=== PATIENT | male | born 1960 | race Caucasian/White ===

== ENCOUNTER → 2017-05-15 10:33 | Outpatient (CLI) | payer OTHER, MEDICARE, SELFPAY ==
--- NOTE | 2017-05-15 10:53 | XR_ITS ---
EXAM: XR lumbar spine min 4V HISTORY: ITS.REASON: MEGHANN LOW BACK PAIN ORDERING PHYSICIAN: Rin Merino PATIENT AGE: 56 years COMPARISON: None FINDINGS: Normal alignment. No fracture or dislocation. No lytic or blastic change. The disc spaces are well-preserved. Small intra-articular osteophyte are present at L3, L4, and L5. There is incidental vascular calcification noted of the aorta. The SI joints have an unremarkable appearance. IMPRESSION: Mild lumbar spondylosis, no acute finding
== END ==
PROVIDERS: PCP Family Medicine; Visit Provider Nurse Practitioner Family
DX: M54.5 Low back pain (principal)
CPT/HCPCS: 72110

== ENCOUNTER → 2017-07-10 09:32 | Outpatient (CLI) | payer OTHER, MEDICARE, SELFPAY ==
[2017-07-10 10:11] LABS: Albumin Level 3.2 gm/dL (3.4-5.0); Anion Gap 9.3 mEq/L (5-15); Blood Urea Nitrogen 39 mg/dL (7-18); Calcium 9.1 mg/dL (8.5-10.1); Carbon Dioxide 30 mmol/L (21.0-32.0); Chloride 105 mmol/L (98-107); Estimated Glomerular Filt Rate 45 ml/min (>60); GFR (African American) 55 ML/MIN (>60); Glucose 217 mg/dL (74-106); Phosphorous 4.3 mg/dL (2.4-4.9); Potassium 4.3 mmoL/L (3.5-5.1); Sodium 140 mmol/L (136-145); Uric Acid 8.8 mg/dL (2.6-7.2)
[2017-07-12 09:30] LABS: Parathyroid Hormone Intact 33 pg/mL (15-65)
== END ==
PROVIDERS: Visit Provider Internal Medicine
DX: N18.9 Chronic kidney disease, unspecified (principal)
CPT/HCPCS: 36415; 80069; 83970; 84550

== ENCOUNTER → 2017-09-18 10:00 | Outpatient (CLI) | payer OTHER, MEDICARE, SELFPAY ==
[2017-09-18 11:01] LABS: Anion Gap 15.8 mEq/L (5-15); Blood Urea Nitrogen 31 mg/dL (7-18); Carbon Dioxide 25 mmol/L (21.0-32.0); Chloride 105 mmol/L (98-107); Creatinine,Serum 2.01 mg/dL (0.70-1.30); Estimated Glomerular Filt Rate 35 ml/min (>60); GFR (African American) 42 ML/MIN (>60); Glucose 158 mg/dL (74-106); Sodium 139 mmol/L (136-145)
[2017-09-18 11:04] LABS: Potassium 6.8 mmoL/L (3.5-5.1)
--- NOTE | 2017-09-18 12:08 | XR_ITS ---
XR foot LT min 3V HISTORY: Pain and swelling, laceration ITS.REASON: LACERATION OF LESSER TOE OF LEFT FOOT,CELLULITIS ORDERING PHYSICIAN: Bo Pat MD PATIENT AGE: 57 years COMPARISON: None FINDINGS: No fracture or dislocation. No lytic or blastic change. There is normal mineralization.. The joint spaces are well-preserved. No significant degenerative/arthritic changes. No erosive changes evident. No radio opaque foreign body or soft tissue gas IMPRESSION: Negative, no acute finding
== END ==
PROVIDERS: PCP Family Medicine; Visit Provider Internal Medicine
DX: I25.10 Atherosclerotic heart disease of native coronary artery without angina pectoris (principal); I73.9 Peripheral vascular disease, unspecified; I10 Essential (primary) hypertension; E78.5 Hyperlipidemia, unspecified; S91.115D Laceration without foreign body of left lesser toe(s) without damage to nail, subsequent encounter; L03.818 Cellulitis of other sites
CPT/HCPCS: 36415; 73630; 80048

== ENCOUNTER → 2017-09-19 14:57 | Outpatient (CLI) | payer OTHER, MEDICARE, SELFPAY ==
[2017-09-19 18:04] LABS: Anion Gap 12.8 mEq/L (5-15); Blood Urea Nitrogen 35 mg/dL (7-18); Carbon Dioxide 27 mmol/L (21.0-32.0); Chloride 107 mmol/L (98-107); Estimated Glomerular Filt Rate 35 ml/min (>60); GFR (African American) 42 ML/MIN (>60); Glucose 216 mg/dL (74-106); Potassium 5.8 mmoL/L (3.5-5.1); Sodium 141 mmol/L (136-145)
== END ==
PROVIDERS: Visit Provider Internal Medicine
DX: I25.10 Atherosclerotic heart disease of native coronary artery without angina pectoris (principal)
CPT/HCPCS: 36415; 80048

== ENCOUNTER → 2017-09-25 11:11 | Outpatient (CLI) | payer OTHER, MEDICARE, SELFPAY ==
[2017-09-25 12:22] LABS: Anion Gap 13.7 mEq/L (5-15); Blood Urea Nitrogen 27 mg/dL (7-18); Calcium 9.6 mg/dL (8.5-10.1); Carbon Dioxide 26 mmol/L (21.0-32.0); Chloride 106 mmol/L (98-107); Creatinine,Serum 1.37 mg/dL (0.70-1.30); Estimated Glomerular Filt Rate 54 ml/min (>60); GFR (African American) 65 ML/MIN (>60); Glucose 243 mg/dL (74-106); Potassium 4.7 mmoL/L (3.5-5.1); Sodium 141 mmol/L (136-145)
== END ==
PROVIDERS: Physician Assistant; Visit Provider Internal Medicine
DX: I25.10 Atherosclerotic heart disease of native coronary artery without angina pectoris (principal); I11.9 Hypertensive heart disease without heart failure; E78.5 Hyperlipidemia, unspecified; E11.9 Type 2 diabetes mellitus without complications; Z95.5 Presence of coronary angioplasty implant and graft
CPT/HCPCS: 36415; 80048

== ENCOUNTER → 2017-11-08 09:56 | Outpatient (CLI) | payer OTHER, MEDICARE, SELFPAY ==
[2017-11-08 10:18] LABS: Anion Gap 8.6 mEq/L (5-15); Blood Urea Nitrogen 29 mg/dL (7-18); Calcium 9.2 mg/dL (8.5-10.1); Carbon Dioxide 30 mmol/L (21.0-32.0); Chloride 107 mmol/L (98-107); Creatinine,Serum 1.67 mg/dL (0.70-1.30); Estimated Glomerular Filt Rate 43 ml/min (>60); GFR (African American) 52 ML/MIN (>60); Glucose 245 mg/dL (74-106); Potassium 4.6 mmoL/L (3.5-5.1); Sodium 141 mmol/L (136-145)
== END ==
PROVIDERS: Visit Provider Physician Assistant
DX: I25.10 Atherosclerotic heart disease of native coronary artery without angina pectoris (principal); Z95.5 Presence of coronary angioplasty implant and graft; I10 Essential (primary) hypertension; I11.9 Hypertensive heart disease without heart failure; E10.9 Type 1 diabetes mellitus without complications; E78.2 Mixed hyperlipidemia
CPT/HCPCS: 36415; 80048

== ENCOUNTER → 2017-11-14 10:27 | Outpatient (CLI) | payer OTHER, MEDICARE, SELFPAY ==
[2017-11-14 11:35] LABS: Anion Gap 14.9 mEq/L (5-15); Blood Urea Nitrogen 55 mg/dL (7-18); Calcium 9.8 mg/dL (8.5-10.1); Carbon Dioxide 27 mmol/L (21.0-32.0); Chloride 105 mmol/L (98-107); Creatinine,Serum 2.39 mg/dL (0.70-1.30); Estimated Glomerular Filt Rate 28 ml/min (>60); GFR (African American) 34 ML/MIN (>60); Glucose 157 mg/dL (74-106); Potassium 4.9 mmoL/L (3.5-5.1); Sodium 142 mmol/L (136-145)
== END ==
PROVIDERS: PCP Family Medicine; Visit Provider Internal Medicine Cardiovascular Disease
DX: I25.10 Atherosclerotic heart disease of native coronary artery without angina pectoris (principal); R06.09 Other forms of dyspnea; N18.2 Chronic kidney disease, stage 2 (mild)
CPT/HCPCS: 36415; 80048

== ENCOUNTER → 2017-12-03 10:57 | Outpatient (CLI) | payer OTHER, MEDICARE, SELFPAY ==
[2017-12-03 12:44] LABS: Anion Gap 13.9 mEq/L (5-15); Blood Urea Nitrogen 47 mg/dL (7-18); Calcium 9.2 mg/dL (8.5-10.1); Carbon Dioxide 26 mmol/L (21.0-32.0); Chloride 106 mmol/L (98-107); Creatinine,Serum 2.15 mg/dL (0.70-1.30); Estimated Glomerular Filt Rate 32 ml/min (>60); GFR (African American) 39 ML/MIN (>60); Glucose 133 mg/dL (74-106); Potassium 4.9 mmoL/L (3.5-5.1); Sodium 141 mmol/L (136-145)
== END ==
PROVIDERS: PCP Family Medicine; Visit Provider Internal Medicine Cardiovascular Disease
DX: I25.10 Atherosclerotic heart disease of native coronary artery without angina pectoris (principal); I11.9 Hypertensive heart disease without heart failure; E10.9 Type 1 diabetes mellitus without complications; N18.2 Chronic kidney disease, stage 2 (mild)
CPT/HCPCS: 36415; 80048

== ENCOUNTER → 2017-12-19 13:04 | Outpatient (CLI) | payer OTHER, MEDICARE, SELFPAY | PROVIDERS: PCP Family Medicine; Visit Provider Internal Medicine Cardiovascular Disease | DX: G47.33 Obstructive sleep apnea (adult) (pediatric) (principal); I10 Essential (primary) hypertension | CPT/HCPCS: G0399 ==

== ENCOUNTER → 2018-04-01 20:02 | Outpatient (CLI) | payer OTHER, MEDICARE, SELFPAY | PROVIDERS: PCP Family Medicine; Visit Provider Nurse Practitioner Family | DX: G47.33 Obstructive sleep apnea (adult) (pediatric) (principal) | CPT/HCPCS: 95811 ==

== ENCOUNTER 2018-06-11 15:03 | Observation (INO) ==
--- NOTE | 2018-06-11 15:08 | Emergency Department Note ---
ED Disposition Clinical Impression: Chest pain, precordial Disposition: Admitted as Observation Condition on Discharge: Good Referrals: Virgil Arzola MD [Primary Care Provider] - - Critical Care Critical Care Time: No Attestation: On , the high probability of a clinically significant, sudden or life threatening deterioration of the following system(s) required my full and direct attention, intervention and personal management. The time I documented below is in addition to time spent performing reported procedures but includes the following listed in this critical care notation. Medical Decision Making - Yury Inquiry Pt receiving controlled substance: No Vital Signs: 06/11/18 15:03 Temperature 97.9 F Temperature Source Oral Pulse Rate [Left Radial] 71 Respiratory Rate 18 Blood Pressure [Right Arm] 132/73 Blood Pressure Mean [Right Arm] 92 Blood Pressure Source [Right Arm] Automatic Cuff Blood Pressure Position [Right Arm] Sitting 02 Sat by Pulse Oximetry 96 Oxygen Delivery Method Room Air - Lab Data Lab Results 06/11/18 15:18: WBC 11.2 H, RBC 5.73, Hgb 15.4, Hct 48.6, MCV 84.9, MCH 26.9 L, MCHC 31.7 L, RDW 14.3, Plt Count 249, MPV 9.3, Neut % (Auto) 77.9, Lymph % (Au to) 14.8, [place] % (Auto) 6.3, Eos % (Auto) 0.8, Baso % (Auto) 0.2, Neut # (Auto) 8.7 H, Lymph # (Auto) 1.7, [place] # (Auto) 0.7, Eos # (Auto) 0.1, Baso # (Auto) 0.0 06/11/18 15:18: Sodium 140, Potassium 4.1, Chloride 104, Carbon Dioxide 26, Anion Gap 14.1, BUN 30 H, Creatinine 1.92 H, Estimated Creat Clear 71, Estimated GFR 37 L, Est GFR ( Amer) 44 L, Glucose 353 H, Calcium 8.2 L, Troponin I < 0.02 Result diagrams: 06/11/18 15:18 06/11/18 15:18 Orders (Tests/Meds): ED MEDICATIONS Discontinued Medications Generic Name Dose Route Start Last Admin Trade Name Freq PRN Reason Stop Dose Admin Aspirin 243 mg 06/11/18 15:15 06/11/18 15:20 Aspirin 81mg Chewable Tablet PO 02/19/19 15:16 243 mg ONCE ONE Administration Diphenhydramine HCl 25 mg 06/11/18 16:14 Benadryl 50mg/1ml Vial IV 06/11/18 16:15 ONCE ONE ORDERS Category Date Time Status Troponin I Stat Lab 06/11/18 15:18 Ordered ECG Request by /Terri Stat Y 06/11/18 15:15 Stop Req - Radiology Data #1 Image(s): Chest Image Reviewed: Yes I have reviewed radiologist's interpretation mild cardiomegaly - ECG Data Tracing #1 EKG interpreted by Alexis Che MD: Rhythm: sinus Rate: 70 [place]: normal Ectopy: none Conduction: normal ST Segment Changes: none T Wave Changes: none Q Waves: Lead III only No evidence of acute ischemia or injury - Physician Consults Physician Consulted: MING Soria for Dr. Pat Time: 15:37 Reason -: Cardiology Eval/Care Comment/Response: She will see patient in the emergency department Additional Consult: Dariusz Time: 16:29 Reason -: Admission Comment/Response: Agrees to admit the patient to the hospital. We discussed the patient's clinical information, including history, exam, laboratory and radiology results and ED course. Per hospital procedure, I will write temporary bridge inpatient orders on the patient. Specific orders requested by the admitting physician: Serial cardiac enzymes, regular medications, Benadryl every 6 hours as needed Medical Decision Narrative: Seen by Estella. Recommends admission, serial enzymes, stress test tomorrow. General Adult HPI - General Stated complaint: Chest pain Time Seen by Provider: 06/11/18 15:15 - History of Present Illness HPI narrative: Chief complaint of chest pain. Patient states that he was cleaning his left leg with Hibiclens because he has diabetic blisters, he developed itching of his hands and feet and then his whole body, then developed chest pain across his anterior chest going up into his left superior anterior shoulder with shortness of breath. States that he still has a very slight sense of pressure in his chest, but the more severe symptoms are gone. No diaphoresis or nausea. He does have coronary artery disease and has had [address] Pat, but has never had chest pain. No swelling of the lips or tongue. No hives or rash. Itching is gone. - Related Data Home Medications Medication Instructions Recorded Confirmed aspirin 81 mg tablet,delayed 81 mg PO QDAY 05/03/17 06/11/18 release atorvastatin 80 mg tablet 80 mg PO QDAY 05/03/17 06/11/18 eszopiclone 2 mg tablet 2 mg PO QHS 05/03/17 06/11/18 pregabalin 200 mg capsule 200 mg PO TID 05/03/17 06/11/18 insulin lispro (U- 100) 100 1 unit SQ DAILY 30 Days #30 ml 02/05/18 06/11/18 unit/mL subcutaneous solution Amlodipine Besylate 5 mg PO DAILY 06/11/18 06/11/18 Bisoprolol Fumarate [Bisoprolol 10 mg PO DAILY 06/11/18 06/11/18 10mg Tablet] Furosemide [Furosemide 20mg Tab] 20 mg PO QPM 06/11/18 06/11/18 Losartan Potassium 100 mg PO DAILY 06/11/18 06/11/18 Previous Rx's Medication Instructions Recorded ticagrelor 60 mg tablet 60 mg PO BID #180 tab 10/10/17 Allergies Allergy/AdvReac Type Severity Reaction Status Date / Time lisinopril AdvReac Mild cough Verified 06/06/18 09:54 [facility] History - Hepatitis A Screen Attestation statement:: This patient has been screened for Hepatitis A risk factors. I have reviewed the patient's past medical history: Yes Medical History: Reports:: Coronary Artery Disease, Diabetes Mellitus Type 2, Hyperlipidemia, Hypertension Comment: NELSON Laterality Cases: Left: Carpal Tunnel Release Other Surgeries: Yes: Cardiac Catheterization, Coronary Stent, Other Amputation: Yes ([place] finger on L hand, 2 outside toes on R foot, LHC-2 stents) - Social History Smoking Status: Former smoker Alcohol Intake: current Alcohol Intake Frequency:: holidays/special occasions only Substance Use Type: denies use Occupational Status: disabled Housing: house Household Members: spouse Family Hx:: Coronary Artery Disease ROS Obtained: Yes All systems reviewed & no additional complaints - Constitutional Constitutional: Denies fever(s) - Cardiovascular Cardiovascular: Reports chest pain, Denies diaphoresis - Respiratory Respiratory: Yes dyspnea - Gastrointestinal Gastrointestingal: Denies: abdominal pain, nausea, vomiting - Integumentary/Breasts Skin/Breast: Reports itching, Denies rash Physical Exam - General General appearance: alert, in no apparent distress - Head Head exam: atraumatic, normocephalic - Eye Eye exam: Present: normal appearance, PERRL, EOMI - ENT ENT exam: Present: mucous membranes moist - Neck Neck exam: Present: normal inspection, trachea midline - Chest Chest inspection: Present: normal inspection, symmetric chest wall rise - Respiratory Respiratory exam: Present: normal lung sounds bilaterally. Absent: respiratory distress - Cardiovascular Cardiovascular exam: Present: regular rate, normal rhythm, normal heart sounds - Abdominal Exam Abdominal exam: Present: soft. Absent: distention, tenderness - Extremities Exam Extremities exam: Present: full ROM, other (Amputation of left small finger). Absent: tenderness - Neurological Exam Neurological exam: Present: alert, oriented X3 - Psychiatric Psychiatric exam: Present: normal affect, normal mood - Skin Skin exam: Present: warm, dry. Absent: rash
[2018-06-11 15:24] LABS: Basophils % 0.2 % (0.1-2.0); Eosinophils # 0.1 K/mm3 (0.0-0.4); Eosinophils % 0.8 % (0.1-12.0); Hematocrit 48.6 % (42.0-52.0); Hemoglobin 15.4 g/dL (14.1-18.0); Lymphocytes # 1.7 K/mm3 (0.7-4.5); Lymphocytes % 14.8 % (10-50); Mean Corpuscular HGB Conc 31.7 g/dL (31.8-35.4); Mean Corpuscular Hemoglobin 26.9 pg (27.0-31.2); Mean Corpuscular Volume 84.9 fl (80-94); Mean Platelet Volume 9.3 fl (7.4-10.4); Monocytes # 0.7 K/mm3 (0.1-1.0); Monocytes % 6.3 % (1.7-9.3); Neutrophils # 8.7 K/mm3 (1.8-7.8); Neutrophils % 77.9 % (37.0-80.0); Platelet Count 249 K/mm3 (142-424); Red Blood Count 5.73 M/mm3 (4.60-6.20); Red Cell Distribution Width 14.3 % (11.5-17.5); White Blood Count 11.2 K/mm3 (4.8-10.8)
[2018-06-11 15:43] LABS: Anion Gap 14.1 mEq/L (5-15); Blood Urea Nitrogen 30 mg/dL (7-18); Calcium 8.2 mg/dL (8.5-10.1); Carbon Dioxide 26 mmol/L (21.0-32.0); Chloride 104 mmol/L (98-107); Glucose 353 mg/dL (74-106); Potassium 4.1 mmoL/L (3.5-5.1); Sodium 140 mmol/L (136-145)
--- NOTE | 2018-06-11 16:25 | Consult Report ---
History of Present Illness Consult date: 06/11/18 ([id number]) Requesting physician: Alexis Che Consult reason: chest pain Chief complaint: Chest pain History of present illness: This is a 57-year-old gentleman who presented to the emergency department with complaints of chest pain. He states that he was in the tub cleaning his diabetic ulcers to his left leg with Hibiclens when he had sudden onset of itching over his entire body. The patient states that he has been using Hibiclens for quite some time for his diabetic ulcers and has never had an itching episode like that. He states following the itching episode he then had sudden onset of sharp, pressure pain in the center of his chest he states that this radiated across his entire anterior aspect of his chest and radiated up into his left shoulder. It was associated with shortness of breath. He denied any nausea, vomiting or diaphoresis. The patient states that he is still having chest pressure while I am talking to him. He said it is milder now but still present. Earlier today the pain was more severe when it initially first started. He states that he has never had symptoms like this before. The patient has a history of coronary disease with multiple stents placed to his heart and his legs. He states in the past he has never had testing when he required stenting. This chest pain is something new for him. The patient denies any fever, chills, nausea PND or orthopnea. He states that it has resolved but his hands are now red which is very unusual for him. He is concerned that he is having an allergic reaction to something. [facility] History I have reviewed the patient's past medical history: Yes Medical History: Reports:: Coronary Artery Disease, Diabetes Mellitus Type 2, Hyperlipidemia, Hypertension Denies:: Diabetes Mellitus Type 1 *Have you received a flu vaccine this season?: No Laterality Cases: Left: Carpal Tunnel Release Other Surgeries: Yes: Cardiac Catheterization, Coronary Stent, Other Amputation: Yes (Pinkie finger on L hand, 2 outside toes on R foot, LHC-2 stents) - *Social History Smoking Status: Former smoker Alcohol Intake: current Alcohol Intake Frequency:: holidays/special occasions only Substance Use Type: denies use *Occupational Status:: disabled Housing: house Household Members: spouse *Travel in the last 8 weeks: None - Psychiatric History Expresses thoughts of harming self/others: None Suicide Plan Description: No Plan Family Hx:: Coronary Artery Disease Meds Home Medications Medication Instructions Recorded Confirmed Type aspirin 81 mg tablet,delayed 81 mg PO QDAY 05/03/17 06/11/18 History release atorvastatin 80 mg tablet 80 mg PO QDAY 05/03/17 06/11/18 History eszopiclone 2 mg tablet 2 mg PO QHS 05/03/17 06/11/18 History pregabalin 200 mg capsule 200 mg PO TID 05/03/17 06/11/18 History ticagrelor 60 mg tablet 60 mg PO BID #180 tab 10/10/17 06/11/18 Rx insulin lispro (U- 100) 100 1 unit SQ DAILY 30 Days #30 ml 02/05/18 06/11/18 History unit/mL subcutaneous solution Amlodipine Besylate 5 mg PO DAILY 06/11/18 06/11/18 History Bisoprolol Fumarate [Bisoprolol 10 mg PO DAILY 06/11/18 06/11/18 History 10mg Tablet] Furosemide [Furosemide 20mg Tab] 20 mg PO QPM 06/11/18 06/11/18 History Losartan Potassium 100 mg PO DAILY 06/11/18 06/11/18 History Allergies Allergy/AdvReac Type Severity Reaction Status Date / Time lisinopril AdvReac Mild cough Verified 06/06/18 09:54 Review of Systems - Review of Systems Review of systems:: pertinent systems reviewed and negative unless documented below - Constitutional Reports fatigue - *Cardiovascular Reports chest pain, Reports chest pain at rest, Reports chest pain with activity, Reports shortness of breath, Reports shortness of breath with activity - *Respiratory Reports shortness of breath, Reports shortness of breath with activity - Integumentary/Breasts Reports lesions (Diabetic ulcers), Reports itching, Reports rash (Bilateral hands) Exam Vital signs and Labs for Last 24 Hours: Temp Pulse Resp BP Pulse Ox 97.9 F 71 18 132/73 96 06/11/18 15:03 06/11/18 15:03 06/11/18 15:03 06/11/18 15:03 06/11/18 15:03 Laboratory Results - last 24 hr 06/11/18 15:18: WBC 11.2 H, RBC 5.73, Hgb 15.4, Hct 48.6, MCV 84.9, MCH 26.9 L, MCHC 31.7 L, RDW 14.3, Plt Count 249, MPV 9.3, Neut % (Auto) 77.9, Lymph % (Auto) 14.8, [place] % (Auto) 6.3, Eos % (Auto) 0.8, Baso % (Auto) 0.2, Neut # (Auto) 8.7 H, Lymph # (Auto) 1.7, [place] # (Auto) 0.7, Eos # (Auto) 0.1, Baso # (Auto) 0.0 06/11/18 15:18: Sodium 140, Potassium 4.1, Chloride 104, Carbon Dioxide 26, Anion Gap 14.1, BUN 30 H, Creatinine 1.92 H, Estimated Creat Clear 71, Estimated GFR 37 L, Est GFR ( Amer) 44 L, Glucose 353 H, Calcium 8.2 L, Troponin I < 0.02 I & O for Last 24 hours: Intake & Output 06/08/18 06/09/18 06/10/18 06/11/18 23:59 23:59 23:59 23:59 Weight 254 lb Narrative: EKG is sinus rhythm with a rate of 70. - Constitutional no acute distress, obese - *Routine HEENT Exam Head: Present: normocephalic, atraumatic Eye: Present: EOMI, PERRL ENT: Present: mucous membranes moist - *Routine Neck Exam Present: supple, full ROM. Absent: JVD, carotid bruit, lymphadenopathy - *Routine Respiratory Exam Present: CTA bilaterally - *Routine Cardiovascular Exam Present: RRR, Normal S1, Normal S2. Absent: murmur, gallop - *Routine Abdominal Exam Present: soft, normoactive bowel sounds. Absent: tenderness, distended - *Routine Extremities Exam Present: full ROM, pulses intact (Diminished), normal capillary refill. Absent: cyanosis, clubbing, edema - *Routine Skin Exam Present: erythema (The bilateral hands), warm, lesions (Diabetic ulcers to the left leg). Absent: rash - *Routine Neurological Exam Present: alert, oriented X3, CN II-XII intact. Absent: sensory deficit, motor deficit - Detailed Eye Exam Eyelids: Left normal inspection Assessment and Plan (1) Angina pectoris Current visit: Yes Status: Acute Category: Medical Code(s): I20.9 - Angina pectoris, unspecified (2) Itching Current visit: Yes Status: Acute Category: Medical Code(s): L29.9 - Pruritus, unspecified (3) Stented coronary artery Current visit: No Status: Chronic Category: Surgical Code(s): Z95.5 - Presence of coronary angioplasty implant and graft (4) Coronary arteriosclerosis Current visit: No Status: Chronic Category: Medical Code(s): I25.10 - Atherosclerotic heart disease of [place] coronary artery without angina pectoris (5) Diabetes mellitus Current visit: No Status: Chronic Qualifiers: Diabetes mellitus type: type 1 Diabetes mellitus complication status: without complication Qualified Code(s): E10.9 - Type 1 diabetes mellitus without complications Category: Medical Code(s): E11.9 - Type 2 diabetes mellitus without complications (6) Hyperlipidemia Current visit: No Status: Chronic Qualifiers: Hyperlipidemia type: mixed hyperlipidemia Qualified Code(s): E78.2 - Mixed hyperlipidemia Category: Medical Code(s): E78.5 - Hyperlipidemia, unspecified (7) Hypertensive disorder Current visit: No Status: Chronic Qualifiers: Hypertension type: essential hypertension Qualified Code(s): I10 - Essential (primary) hypertension Category: Medical Code(s): I10 - Essential (primary) hypertension (8) NELSON treated with BiPAP Current visit: No Status: Chronic Category: Medical Code(s): G47.33 - Obstructive sleep apnea (adult) (pediatric) (9) PAD (peripheral artery disease) Current visit: No Status: Chronic Category: Medical Code(s): I73.9 - Peripheral vascular disease, unspecified (10) Chronic kidney disease, stage 3 Current visit: Yes Status: Acute Category: Medical Code(s): N18.3 - Chronic kidney disease, stage 3 (moderate) (11) Diabetic ulcer of left lower leg Current visit: Yes Status: Acute Category: Medical Code(s): E11.622 - Type 2 diabetes mellitus with other skin ulcer; L97.929 - Non-pressure chronic ulcer of unspecified part of left lower leg with unspecified severity - Assessment and plan all Dx Assessment and Plan for all problems:: Plan: 1. The patient was admitted to the hospital following an episode of itching after using Hibiclens and then the patient had sudden onset of chest pain. The patient has known coronary artery disease with stenting to his LAD in 2017. The patient did have persistent disease to his right coronary artery and his circumflex artery. He would benefit from an ischemic evaluation given his new onset angina. 2. We will set the patient up for a Lexiscan Myoview stress test in the morning to rule out ischemia 3. We will set the patient up for an echocardiogram to evaluate his LV function. 4. Coronary artery disease is present. 5. His blood pressures well controlled. 6. His LDL goal is less than 55. We will get a liver and lipid panel in the morning. 7. The patient does have chronic kidney disease. His creatinine is 1.9. We want to avoid contrast if possible given his chronic kidney disease. 8. The patient did have some itching following using Hibiclens. He has used this multiple times in the past and never had any issues using the Hibiclens but he states that is the only thing that he did prior to the sudden onset of itching. He is complaining of his hands being reddened which is unusual for him. Will defer management of this to his family doctor. 9. The patient does have some diabetic ulcers to his left leg. He states that his leg is normally wrapped but did not have them to put a dressing on it due to his chest pain. This will also managed by his family doctor. 10. Further recommendations will be made pending the patient's response to treatment. Thank you for the opportunity to help participate in the care of this patient.
--- NOTE | 2018-06-11 16:49 | History & Physical Report ---
*Admission Date: 06/11/18 *Chief complaint: Chest pain *History of present illness: This is a 57-year-old gentleman who presented to the emergency department with complaints of chest pain. He states that he was in the tub cleaning his diabetic ulcers to his left leg with Hibiclens when he had sudden onset of itching over his entire body. The patient states that he has been using Hibiclens for quite some time for his diabetic ulcers and has never had an itching episode like that. He states following the itching episode he then had sudden onset of sharp, pressure pain in the center of his chest he states that this radiated across his entire anterior aspect of his chest and radiated up into his left shoulder. It was associated with shortness of breath. He denied any nausea, vomiting or diaphoresis. The patient states that he is still having chest pressure while I am talking to him. He said it is milder now but still present. Earlier today the pain was more severe when it initially first started. He states that he has never had symptoms like this before. The patient has a history of coronary disease with multiple stents placed to his heart and his legs. He states in the past he has never had testing when he required stenting. This chest pain is something new for him. The patient d enies any fever, chills, nausea PND or orthopnea. He states that it has resolved but his hands are now red which is very unusual for him. He is concerned that he is having an allergic reaction to something. 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, 2 outside toes on R foot, LHC-2 stents) - *Social History Smoking Status: Former smoker Alcohol Intake: current Alcohol Intake Frequency:: holidays/special occasions only Substance Use Type: denies use *Occupational Status:: disabled Housing: house Household Members: spouse *Travel in the last 8 weeks: None - Psychiatric History Expresses thoughts of harming self/others: None Suicide Plan Description: No Plan Family Hx:: Coronary Artery Disease Review of Systems - Review of Systems See [facility] Meds Home Medications Medication Instructions Recorded Confirmed Type aspirin 81 mg tablet,delayed 81 mg PO QDAY 05/03/17 06/11/18 History release atorvastatin 80 mg tablet 80 mg PO QDAY 05/03/17 06/11/18 History eszopiclone 2 mg tablet 2 mg PO QHS 05/03/17 06/11/18 History pregabalin 200 mg capsule 200 mg PO TID 05/03/17 06/11/18 History ticagrelor 60 mg tablet 60 mg PO BID #180 tab 10/10/17 06/11/18 Rx insulin lispro (U- 100) 100 1 unit SQ DAILY 30 Days #30 ml 02/05/18 06/11/18 History unit/mL subcutaneous solution Amlodipine Besylate 5 mg PO DAILY 06/11/18 06/11/18 History Bisoprolol Fumarate [Bisoprolol 10 mg PO DAILY 06/11/18 06/11/18 History 10mg Tablet] Furosemide [Furosemide 20mg Tab] 20 mg PO QPM 06/11/18 06/11/18 History Losartan Potassium 100 mg PO DAILY 06/11/18 06/11/18 History Allergies Allergy/AdvReac Type Severity Reaction Status Date / Time lisinopril AdvReac Mild cough Verified 06/06/18 09:54 Exam Vital signs and Labs for Last 24 Hours: Temp Pulse Resp BP Pulse Ox 97.9 F 69 20 123/73 97 06/11/18 15:03 06/11/18 16:03 06/11/18 16:03 06/11/18 16:03 06/11/18 16:03 Laboratory Results - last 24 hr 06/11/18 15:18: WBC 11.2 H, RBC 5.73, Hgb 15.4, Hct 48.6, MCV 84.9, MCH 26.9 L, MCHC 31.7 L, RDW 14.3, Plt Count 249, MPV 9.3, Neut % (Auto) 77.9, Lymph % (Auto) 14.8, [place] % (Auto) 6.3, Eos % (Auto) 0.8, Baso % (Auto) 0.2, Neut # (Auto) 8.7 H, Lymph # (Auto) 1.7, [place] # (Auto) 0.7, Eos # (Auto) 0.1, Baso # (Auto) 0.0 06/11/18 15:18: Sodium 140, Potassium 4.1, Chloride 104, Carbon Dioxide 26, Anion Gap 14.1, BUN 30 H, Creatinine 1.92 H, Estimated Creat Clear 71, Estimated GFR 37 L, Est GFR ( Amer) 44 L, Glucose 353 H, Calcium 8.2 L, Troponin I < 0.02 I & O for Last 24 hours: Intake & Output 06/09/18 06/10/18 06/11/18 06/12/18 11:59 11:59 11:59 11:59 Weight 254 lb Narrative: He appears comfortable. ENT exam is grossly normal. Neck is without lymphadenopathy or carotid bruits. Lungs are clear to auscultation. Heart has a regular rate and rhythm. Abdomen is soft and obese. Extremities have chronic erythema of the lower legs with dry flaky skin on the right leg. On the left lateral leg there is a large superficial wound that is draining some serosanguineous. Assessment and Plan (1) Angina pectoris Current visit: Yes Status: Acute Category: Medical Code(s): I20.9 - Angina pectoris, unspecified (2) Itching Current visit: Yes Status: Acute Category: Medical Code(s): L29.9 - Pruritus, unspecified (3) Stented coronary artery Current visit: No Status: Chronic Category: Surgical Code(s): Z95.5 - Presence of coronary angioplasty implant and graft (4) Coronary arteriosclerosis Current visit: No Status: Chronic Category: Medical Code(s): I25.10 - Atherosclerotic heart disease of [place] coronary artery without angina pectoris (5) Diabetes mellitus Current visit: No Status: Chronic Qualifiers: Diabetes mellitus type: type 1 Diabetes mellitus complication status: without complication Qualified Code(s): E10.9 - Type 1 diabetes mellitus without complications Category: Medical Code(s): E11.9 - Type 2 diabetes mellitus without complications (6) Hyperlipidemia Current visit: No Status: Chronic Qualifiers: Hyperlipidemia type: mixed hyperlipidemia Qualified Code(s): E78.2 - Mixed hyperlipidemia Category: Medical Code(s): E78.5 - Hyperlipidemia, unspecified (7) Hypertensive disorder Current visit: No Status: Chronic Qualifiers: Hypertension type: essential hypertension Qualified Code(s): I10 - Ess ential (primary) hypertension Category: Medical Code(s): I10 - Essential (primary) hypertension (8) NELSON treated with BiPAP Current visit: No Status: Chronic Category: Medical Code(s): G47.33 - Obstructive sleep apnea (adult) (pediatric) (9) PAD (peripheral artery disease) Current visit: No Status: Chronic Category: Medical Code(s): I73.9 - Peripheral vascular disease, unspecified (10) Chronic kidney disease, stage 3 Current visit: Yes Status: Acute Category: Medical Code(s): N18.3 - Chronic kidney disease, stage 3 (moderate) (11) Diabetic ulcer of left lower leg Current visit: Yes Status: Acute Category: Medical Code(s): E11.622 - Type 2 diabetes mellitus with other skin ulcer; L97.929 - Non-pressure chronic ulcer of unspecified part of left lower leg with unspecified severity - Assessment and plan all Dx Assessment and Plan for all problems:: Admit for rule out of MA. If patient rules out he will undergo stress testing in the morning
--- NOTE | 2018-06-12 07:19 | Progress Note ---
Internal Medicine - PN: Subj *Date: 06/12/18 *Time: 07:17 Interval history: Patient reports chest pain resolved around 8pm last night. His troponin barry minimally. HE feels well this a.m. Exam Vital signs and Labs for Last 24 Hours: Temp Pulse Resp BP Pulse Ox 98.5 F 66 18 97/49 L 95 06/12/18 04:00 06/12/18 04:00 06/12/18 04:00 06/12/18 04:00 06/12/18 04:00 Laboratory Results - last 24 hr 06/11/18 15:18: WBC 11.2 H, RBC 5.73, Hgb 15.4, Hct 48.6, MCV 84.9, MCH 26.9 L, MCHC 31.7 L, RDW 14.3, Plt Count 249, MPV 9.3, Neut % (Auto) 77.9, Lymph % (Aut o) 14.8, [place] % (Auto) 6.3, Eos % (Auto) 0.8, Baso % (Auto) 0.2, Neut # (Auto) 8.7 H, Lymph # (Auto) 1.7, [place] # (Auto) 0.7, Eos # (Auto) 0.1, Baso # (Auto) 0.0 06/11/18 15:18: Sodium 140, Potassium 4.1, Chloride 104, Carbon Dioxide 26, Anion Gap 14.1, BUN 30 H, Creatinine 1.92 H, Estimated Creat Clear 71, Estimated GFR 37 L, Est GFR ( Amer) 44 L, Glucose 353 H, Calcium 8.2 L, Troponin I < 0.02 06/11/18 17:35: Troponin I 0.07 H 06/11/18 20:17: Troponin I 0.10 H 06/11/18 20:50: POC Glucose 372 H* 06/11/18 22:51: Troponin I 0.09 H 06/12/18 06:36: POC Glucose 89 I & O for Last 24 hours: Intake & Output 06/09/18 06/10/18 06/11/18 06/12/18 11:59 11:59 11:59 11:59 Intake Total 610 / 610 Balance 610 / 610 Weight 254 lb 3 oz - Constitutional no acute distress - *Routine Respiratory Exam Present: CTA bilaterally - *Routine Cardiovascular Exam Present: RRR Assessment and Plan (1) Angina pectoris Current visit: Yes Status: Acute Category: Medical Code(s): I20.9 - Angina pectoris, unspecified (2) Itching Current visit: Yes Status: Acute Category: Medical Code(s): L29.9 - Pruritus, unspecified (3) Stented coronary artery Current visit: No Status: Chronic Category: Surgical Code(s): Z95.5 - Presence of coronary angioplasty implant and graft (4) Coronary arteriosclerosis Current visit: No Status: Chronic Category: Medical Code(s): I25.10 - Atherosclerotic heart disease of [place] coronary artery without angina pectoris (5) Diabetes mellitus Current visit: No Status: Chronic Qualifiers: Diabetes mellitus type: type 1 Diabetes mellitus complication status: without complication Qualified Code(s): E10.9 - Type 1 diabetes mellitus without complications Category: Medical Code(s): E11.9 - Type 2 diabetes mellitus without complications (6) Hyperlipidemia Current visit: No Status: Chronic Qualifiers: Hyperlipidemia type: mixed hyperlipidemia Qualified Code(s): E78.2 - Mixed hyperlipidemia Category: Medical Code(s): E78.5 - Hyperlipidemia, unspecified (7) Hypertensive disorder Current visit: No Status: Chronic Qualifiers: Hypertension type: essential hypertension Qualified Code(s): I10 - Essential (primary) hypertension Category: Medical Code(s): I10 - Essential (primary) hypertension (8) NELSON treated with BiPAP Current visit: No Status: Chronic Category: Medical Code(s): G47.33 - Obstructive sleep apnea (adult) (pediatric) (9) PAD (peripheral artery disease) Current visit: No Status: Chronic Category: Medical Code(s): I73.9 - Peripheral vascular disease, unspecified (10) Chronic kidney disease, stage 3 Current visit: Yes Status: Acute Category: Medical Code(s): N18.3 - Chronic kidney disease, stage 3 (moderate) (11) Diabetic ulcer of left lower leg Current visit: Yes Status: Acute Category: Medical Code(s): E11.622 - Type 2 diabetes mellitus with other skin ulcer; L97.929 - Non-pressure chronic ulcer of unspecified part of left lower leg with unspecified severity - Assessment and plan all Dx Assessment and Plan for all problems:: 1. Stress test today
--- NOTE | 2018-06-12 07:36 | Pharmacy Consult Notes ---
[facility] Pharmacy VTE Monitoring - Patient Demographics Admission date: 06/11/18 Report Date: 06/12/18 Time: 07:36 Allergies/Adverse Reactions: Patient Allergies lisinopril Adverse Reaction (Mild, Verified 06/06/18 09:54) cough Height: 1.83 m Weight: 115.298 kg Patient Problems: Current Active Problems Angina pectoris (Acute) Itching (Acute) Chronic kidney disease, stage 3 (Acute) Diabetic ulcer of left lower leg (Acute) Chest pain, precordial (Acute) - VTE Risk Labs: VTE Related Lab Results Hgb 15.4 g/dL (14.1-18.0) 06/11/18 15:18 Hct 48.6 % (42.0-52.0) 06/11/18 15:18 Plt Count 249 K/mm3 (142-424) 06/11/18 15:18 BUN 30 mg/dL (7-18) H 06/11/18 15:18 Creatinine 1.92 mg/dL (0.70-1.30) H 06/11/18 15:18 Estimated Creat Clear 71 mL/min (50-200) 06/11/18 15:18 VTE Score: 2 - Prophylaxis VTE Prophylaxis Ordered?: Yes Types of VTE Prophylaxis: TEDS Knee High Location of Applied Device: Bilateral Lower Extremeties - VTE Diagnosis Confirmed Treatment or plan recommended: Continue Current Treatment
--- NOTE | 2018-06-12 14:50 | Progress Note ---
Subjective Date: 06/12/18 Time: 14:46 Principal diagnosis: chest pain Interval history: 57 yo WM in bed in NAD. Gautam myoview shows anterior and lateral wall ischemia with LV dilatation. High risk abnormal stress test. Recommend [place] tomorrow. Discussed with patient and . Both agree to proceed. Recommend keep overnight for cath in AM. Exam Vital signs and Labs for Last 24 Hours: Temp Pulse Resp BP Pulse Ox 97.7 F 68 18 146/94 H 97 06/12/18 08:00 06/12/18 08:00 06/12/18 08:00 06/12/18 08:00 06/12/18 08:00 Laboratory Results - last 24 hr 06/11/18 15:18: WBC 11.2 H, RBC 5.73, Hgb 15.4, Hct 48.6, MCV 84.9, MCH 26.9 L, MCHC 31.7 L, RDW 14.3, Plt Count 249, MPV 9.3, Neut % (Auto) 77.9, Lymph % (Auto) 14.8, [place] % (Auto) 6.3, Eos % (Auto) 0.8, Baso % (Auto) 0.2, Neut # (Auto) 8.7 H, Lymph # (Auto) 1.7, [place] # (Auto) 0.7, Eos # (Auto) 0.1, Baso # (Auto) 0.0 06/11/18 15:18: Sodium 140, Potassium 4.1, Chloride 104, Carbon Dioxide 26, Anion Gap 14.1, BUN 30 H, Creatinine 1.92 H, Estimated Creat Clear 71, Estimated GFR 37 L, Est GFR ( Amer) 44 L, Glucose 353 H, Calcium 8.2 L, Troponin I < 0.02 06/11/18 17:35: Troponin I 0.07 H 06/11/18 20:17: Troponin I 0.10 H 06/11/18 20:50: POC Glucose 372 H* 06/11/18 22:51: Troponin I 0.09 H 06/12/18 06:36: POC Glucose 89 06/12/18 11:43: POC Glucose 78 I & O for Last 24 hours: Intake & Output 06/10/18 06/11/18 06/12/18 06/13/18 11:59 11:59 11:59 11:59 Intake Total 610 / 610 0 / 0 Balance 610 / 610 0 / 0 Weight 254 lb 3 oz 254 lb - *Routine HEENT Exam Head: Present: normocephalic Eye: Present: EOMI, PERRL ENT: Present: mucous membranes moist - *Routine Respiratory Exam Present: CTA bilaterally. Absent: accessory muscle use, rales, rhonchi, wheezes - *Routine Cardiovascular Exam Present: RRR. Absent: murmur, gallop, rubs - *Routine Neurological Exam Present: alert, oriented X3, moving all extremities Progress Note: A&P (1) Angina pectoris Status: Acute Current Visit: Yes (2) Itching Status: Acute Current Visit: Yes (3) Stented coronary artery Status: Chronic Current Visit: No (4) Coronary arteriosclerosis Status: Chronic Current Visit: No (5) Diabetes mellitus Status: Chronic Current Visit: No (6) Hyperlipidemia Status: Chronic Current Visit: No (7) Hypertensive disorder Status: Chronic Current Visit: No (8) NELSON treated with BiPAP Status: Chronic Current Visit: No (9) PAD (peripheral artery disease) Status: Chronic Current Visit: No (10) Chronic kidney disease, stage 3 Status: Acute Current Visit: Yes (11) Diabetic ulcer of left lower leg Status: Acute Current Visit: Yes (12) Abnormal cardiovascular stress test Status: Acute Current Visit: Yes Assessment and Plan for All Diagnoses:: C in AM. Continue ASA and brilinta.
--- NOTE | 2018-06-13 07:06 | Progress Note ---
Internal Medicine - PN: Subj *Date: 06/13/18 *Time: 07:04 Interval history: Patient has not had any further chest pain. Stress test was abnormal and cath is scheduled for later this a.m. Exam Vital signs and Labs for Last 24 Hours: Temp Pulse Resp BP Pulse Ox 98.1 F 61 18 119/51 L 97 06/13/18 04:00 06/13/18 04:00 06/13/18 04:00 06/13/18 04:00 06/13/18 04:00 Laboratory Results - last 24 hr 06/12/18 11:43: POC Glucose 78 06/12/18 16:23: POC Glucose 244 H 06/12/18 20:55: POC Glucose 184 H I & O for Last 24 hours: Intake & Output 06/10/18 06/11/18 06/12/18 06/13/18 11:59 11:59 11:59 11:59 Intake Total 610 / 610 590 / 590 Balance 610 / 610 590 / 590 Weight 254 lb 3 oz 254 lb - Constitutional no acute distress - *Routine Respiratory Exam Present: CTA bilaterally - *Routine Cardiovascular Exam Present: RRR, Normal S1, Normal S2 Assessment and Plan (1) Angina pectoris Current visit: Yes Status: Acute Category: Medical Code(s): I20.9 - Angina pectoris, unspecified (2) Itching Current visit: Yes Status: Acute Category: Medical Code(s): L29.9 - Pruritus, unspecified (3) Stented coronary artery Current visit: No Status: Chronic Category: Surgical Code(s): Z95.5 - Presence of coronary angioplasty implant and graft (4) Coronary arteriosclerosis Current visit: No Status: Chronic Category: Medical Code(s): I25.10 - Atherosclerotic heart disease of [place] coronary artery without angina pectoris (5) Diabetes mellitus Current visit: No Status: Chronic Qualifiers: Diabetes mellitus type: type 1 Diabetes mellitus complication status: without complication Qualified Code(s): E10.9 - Type 1 diabetes mellitus without complications Category: Medical Code(s): E11.9 - Type 2 diabetes mellitus without complic ations (6) Hyperlipidemia Current visit: No Status: Chronic Qualifiers: Hyperlipidemia type: mixed hyperlipidemia Qualified Code(s): E78.2 - Mixed hyperlipidemia Category: Medical Code(s): E78.5 - Hyperlipidemia, unspecified (7) Hypertensive disorder Current visit: No Status: Chronic Qualifiers: Hypertension type: essential hypertension Qualified Code(s): I10 - Essential (primary) hypertension Category: Medical Code(s): I10 - Essential (primary) hypertension (8) NELSON treated with BiPAP Current visit: No Status: Chronic Category: Medical Code(s): G47.33 - Obstructive sleep apnea (adult) (pediatric) (9) PAD (peripheral artery disease) Current visit: No Status: Chronic Category: Medical Code(s): I73.9 - Peripheral vascular disease, unspecified (10) Chronic kidney disease, stage 3 Current visit: Yes Status: Acute Category: Medical Code(s): N18.3 - Chronic kidney disease, stage 3 (moderate) (11) Diabetic ulcer of left lower leg Current visit: Yes Status: Acute Category: Medical Code(s): E11.622 - Type 2 diabetes mellitus with other skin ulcer; L97.929 - Non-pressure chronic ulcer of unspecified part of left lower leg with unspecified severity (12) Abnormal cardiovascular stress test Current visit: Yes Status: Acute Category: Medical Code(s): R94.39 - Abnormal result of other cardiovascular function study - Assessment and plan all Dx Assessment and Plan for all problems:: [facility] today.
--- NOTE | 2018-06-13 07:48 | Progress Note ---
Addendum entered and electronically signed by CHUY Sheikh 06/13/18 10:35: Cardiac cath performed with stent placed to ostial LAD. Continue ASA 81 mg daily and Brilinta but increase to 90 mg BID. Recommend observing overnight and discharge home in AM. Original Note: Subjective Date: 06/13/18 Time: 07:47 Principal diagnosis: chest pain Interval history: 57-year-old white male in bed in no acute distress. No complaints of chest pain overnight. Exam Vital signs and Labs for Last 24 Hours: Temp Pulse Resp BP Pulse Ox 98.0 F 65 19 120/68 98 06/13/18 07:36 06/13/18 07:36 06/13/18 07:36 06/13/18 07:36 06/13/18 07:36 Laboratory Results - last 24 hr 06/12/18 11:43: POC Glucose 78 06/12/18 16:23: POC Glucose 244 H 06/12/18 20:55: POC Glucose 184 H I & O for Last 24 hours: Intake & Output 06/10/18 06/11/18 06/12/18 06/13/18 11:59 11:59 11:59 11:59 Intake Total 610 / 610 590 / 590 Balance 610 / 610 590 / 590 Weight 254 lb 3 oz 254 lb - *Routine HEENT Exam Head: Present: normocephalic Eye: Present: EOMI, PERRL ENT: Present: mucous membranes moist - *Routine Respiratory Exam Present: CTA bilaterally. Absent: accessory muscle use, rales, rhonchi, wheezes - *Routine Cardiovascular Exam Present: RRR. Absent: murmur, gallop, rubs - *Routine Neurological Exam Present: alert, oriented X3, moving all extremities Progress Note: A&P (1) Angina pectoris Status: Acute Current Visit: Yes (2) Itching Status: Acute Current Visit: Yes (3) Stented coronary artery Status: Chronic Current Visit: No (4) Coronary arteriosclerosis Status: Chronic Current Visit: No (5) Diabetes mellitus Status: Chronic Current Visit: No (6) Hyperlipidemia Status: Chronic Current Visit: No (7) Hypertensive disorder Status: Chronic Current Visit: No (8) NELSON treated with BiPAP Status: Chronic Current Visit: No (9) PAD (peripheral artery disease) Status: Chronic Current Visit: No (10) Chronic kidney disease, stage 3 Status: Acute Current Visit: Yes (11) Diabetic ulcer of left lower leg Status: Acute Current Visit: Yes (12) Abnormal cardiovascular stress test Status: Acute Current Visit: Yes Assessment and Plan for All Diagnoses:: Proceed with left heart catheterization today due to abnormal stress test in this diabetic patient with known previous coronary disease. Patient continues on aspirin, Brilinta, bisoprolol, atorvastatin, amlodipine therapy. Further recommendations pending above results.
[2018-06-14 06:56] LABS: Basophils # 0.1 K/mm3 (0-0.2); Basophils % 0.5 % (0.1-2.0); Eosinophils # 0.5 K/mm3 (0.0-0.4); Eosinophils % 3.8 % (0.1-12.0); Hematocrit 43.5 % (42.0-52.0); Hemoglobin 13.9 g/dL (14.1-18.0); Lymphocytes # 2.3 K/mm3 (0.7-4.5); Lymphocytes % 19.7 % (10-50); Mean Corpuscular HGB Conc 31.9 g/dL (31.8-35.4); Mean Corpuscular Hemoglobin 26.9 pg (27.0-31.2); Mean Corpuscular Volume 84.3 fl (80-94); Mean Platelet Volume 9.4 fl (7.4-10.4); Monocytes # 0.9 K/mm3 (0.1-1.0); Monocytes % 7.1 % (1.7-9.3); Neutrophils # 8.2 K/mm3 (1.8-7.8); Neutrophils % 68.9 % (37.0-80.0); Platelet Count 246 K/mm3 (142-424); Red Blood Count 5.17 M/mm3 (4.60-6.20); Red Cell Distribution Width 14.5 % (11.5-17.5); White Blood Count 11.9 K/mm3 (4.8-10.8)
[2018-06-14 07:04] LABS: Anion Gap 9.4 mEq/L (5-15); Potassium 4.4 mmoL/L (3.5-5.1)
--- NOTE | 2018-06-14 07:06 | Discharge Summary ---
General - General Admission date:: 06/11/18 Discharge date: 06/14/18 HPI HPI: This is a 57-year-old gentleman who presented to the emergency department with complaints of chest pain. He states that he was in the tub cleaning his diabetic ulcers to his left leg with Hibiclens when he had sudden onset of itching over his entire body. The patient states that he has been using Hibiclens for quite some time for his diabetic ulcers and has never had an itching episode like that. He states following the itching episode he then had sudden onset of sharp, pressure pain in the center of his chest he states that this radiated across his entire anterior aspect of his chest and radiated up into his left shoulder. It was associated with shortness of breath. He denied any nausea, vomiting or diaphoresis. The patient states that he is still having chest pressure while I am talking to him. He said it is milder now but still present. Earlier today the pain was more severe when it initially first started. He states that he has never had symptoms like this before. The patient has a history of coronary disease with multiple stents placed to his heart and his legs. He states in the past he has never had testing when he required stenting. This chest pain is something new for him. The patient denies any fever, chills, nausea PND or orthopnea. He states that it has resolved but his hands are now red which is very unusual for him. He is co ncerned that he is having an allergic reaction to something. The above history was given to the cardiology service and repeated by the patient to me Hospital Course Hospital Course: Patient was admitted for monitoring and serial enzymes. Chest pain resolved by the evening of admission. Troponin barry slightly to .10. The following morning patient underwent a Lexiscan stress test which was significant for reversible ischemia. Plan was to proceed with cardiac catheterization. On June 13 patient underwent cardiac catheterization with findings as follows: IMPRESSION: 1. Severe to critical ostial proximal LAD disease 2. Successful stenting of the ostial proximal LAD critical disease reduced to 0% with 1 drug-eluting stent 3. Persistent disease as described above 4. Elevated LVEDP Patient was monitored overnight. His blood pressure did remain mildly elevated. He remains chest pain-free he was discharged home on the morning of June 14. Patient will follow up with Dr. Pat and myself next week Objective Vital signs: Temp Pulse Resp BP Pulse Ox 97.5 F L 57 L 18 184/77 H 97 06/14/18 04:00 06/14/18 06:00 06/14/18 06:00 06/14/18 06:00 06/14/18 06:00 no acute distress - *Routine Respiratory Exam Present: CTA bilaterally - *Routine Cardiovascular Exam Present: RRR Results Labs on day of discharge: Labs from last 24 hours 06/14/18 06/13/18 06/13/18 06:00 20:46 16:40 Activated Clotting Time POC Glucose 82 190 H 172 H 06/13/18 06/13/18 11:29 09:54 Activated Clotting Time 286 H* POC Glucose 73 DS: Diagnosis - Discharge Diagnosis (1) Angina pectoris Status: Acute (2) Itching Status: Acute (3) Stented coronary artery Status: Chronic (4) Coronary arteriosclerosis Status: Chronic (5) Diabetes mellitus Status: Chronic (6) Hyperlipidemia Status: Chronic (7) Hypertensive disorder Status: Chronic (8) NELSON treated with BiPAP Status: Chronic (9) PAD (peripheral artery disease) Status: Chronic (10) Chronic kidney disease, stage 3 Status: Acute (11) Diabetic ulcer of left lower leg Status: Acute (12) Abnormal cardiovascular stress test Status: Acute Discharge Plan - Patient Discharge Instructions ACTIVITY: Continue current activity DIET: continue same diet Patient Instructions: Heart-Healthy Diet, DI for Cardiac Catheterization, DI for Surgical Site Infection, DI for Chest Pain - Follow up Plan Follow up with: Bo Pat MD [Staff Physician] - 1 week Virgil Arzola MD [Primary Care Provider] - 06/14/18 10:00 am Disposition: Home, Self-Residential Medications: Home Medications Medication Instructions Recorded Confirmed Type aspirin 81 mg tablet,delayed 81 mg PO DAILY 05/03/17 06/12/18 History release atorvastatin 80 mg tablet 80 mg PO HS 05/03/17 06/12/18 History pregabalin 200 mg capsule 200 mg PO TID 05/03/17 06/11/18 History ticagrelor 60 mg tablet 60 mg PO BID #180 tab 10/10/17 06/11/18 Rx insulin lispro (U- 100) 100 1 unit SQ DAILY 30 Days #30 ml 02/05/18 06/11/18 History unit/mL subcutaneous solution Bisoprolol Fumarate [Bisoprolol 10 mg PO DAILY 06/11/18 06/11/18 History 10mg Tablet] Losartan Potassium 100 mg PO DAILY 06/11/18 06/11/18 History Amlodipine Besylate 5 mg PO DAILY 06/12/18 06/12/18 History Eszopiclone 2 mg PO HS 06/12/18 06/12/18 History Amlodipine Besylate [Amlodipine 10 mg PO DAILY #30 tab 06/14/18 Rx 10mg Tab] Prescriptions/Medication Reconciliation: New Amlodipine Besylate [Amlodipine 10mg Tab] 10 mg PO DAILY #30 tab Continue aspirin 81 mg tablet,delayed release 81 mg PO DAILY atorvastatin 80 mg tablet 80 mg PO HS pregabalin 200 mg capsule 200 mg PO TID ticagrelor 60 mg tablet 60 mg PO BID #180 tab insulin lispro (U- 100) 100 unit/mL subcutaneous solution 1 unit SQ DAILY 30 Days #30 ml Losartan Potassium 100 mg PO DAILY Bisoprolol Fumarate [Bisoprolol 10mg Tablet] 10 mg PO DAILY Eszopiclone 2 mg PO HS Discontinued Amlodipine Besylate 5 mg PO DAILY
[2018-06-14 07:18] LABS: Calcium 8.8 mg/dL (8.5-10.1)
== END 2018-06-14 09:25 | disposition home or self-care (01) ==
LOC: 2ND 15:03 → ER 15:03 → 2ND 18:04
PROVIDERS: ADMIT Family Medicine; ATTEND Family Medicine
DX: E11.22 Type 2 diabetes mellitus with diabetic chronic kidney disease; G47.33 Obstructive sleep apnea (adult) (pediatric); Z87.891 Personal history of nicotine dependence; Z99.89 Dependence on other enabling machines and devices; L97.829 Non-pressure chronic ulcer of other part of left lower leg with unspecified severity; I25.119 Atherosclerotic heart disease of native coronary artery with unspecified angina pectoris; Z88.8 Allergy status to other drugs, medicaments and biological substances; I12.9 Hypertensive chronic kidney disease with stage 1 through stage 4 chronic kidney disease, or unspecified chronic kidney disease; E11.42 Type 2 diabetes mellitus with diabetic polyneuropathy; N18.3 Chronic kidney disease, stage 3 (moderate); Z79.82 Long term (current) use of aspirin; Z95.5 Presence of coronary angioplasty implant and graft; Z79.4 Long term (current) use of insulin; E11.622 Type 2 diabetes mellitus with other skin ulcer; Z79.899 Other long term (current) drug therapy; E78.2 Mixed hyperlipidemia
CPT/HCPCS: 36415; 71020; 71046; 78451; 80048; 82962; 84484; 85025; 85347; 92928; 93005; 93017; 93306; 93458; 96374; 99152; 99284; A9502; C1725; C1769; C1876; C9600; G0378; J1644; J2785; Q9966

== ENCOUNTER → 2018-06-21 10:14 | Outpatient (CLI) | payer OTHER, MEDICARE, SELFPAY ==
[2018-06-21 11:00] LABS: Hemoglobin 13.7 g/dL (14.1-18.0)
[2018-06-21 12:06] LABS: Blood Urea Nitrogen 31 mg/dL (7-18); Creatinine,Serum 1.53 mg/dL (0.70-1.30); Estimated Glomerular Filt Rate 47 ml/min (>60); GFR (African American) 57 ML/MIN (>60)
== END ==
PROVIDERS: Visit Provider Internal Medicine
DX: Z95.5 Presence of coronary angioplasty implant and graft (principal); Z51.81 Encounter for therapeutic drug level monitoring; Z79.01 Long term (current) use of anticoagulants
CPT/HCPCS: 36415; 82565; 84520; 85014; 85018

== ENCOUNTER 2018-07-23 08:03 | Outpatient (RCR) | payer OTHER, MEDICARE, SELFPAY | END 2018-11-01 13:13 | disposition home or self-care (01) | LOC: PT 08:03 | PROVIDERS: Visit Provider Internal Medicine Cardiovascular Disease | DX: I25.10 Atherosclerotic heart disease of native coronary artery without angina pectoris (principal); Z95.5 Presence of coronary angioplasty implant and graft | CPT/HCPCS: 93798 ==

== ENCOUNTER → 2019-08-27 11:44 | Outpatient (CLI) | payer OTHER, MEDICARE, SELFPAY ==
--- NOTE | 2019-08-27 | XR_ITS ---
PROCEDURE: XR KNEE RT 2V CLINICAL INDICATION: COMPARISON: No exams were available for comparison FINDINGS: No fracture or dislocation. No lytic or blastic change. There is normal mineralization. The joint spaces are well-preserved. No significant degenerative/arthritic changes. No erosive changes evident. Other findings:May be a small suprapatellar effusion IMPRESSION: Possible small suprapatellar effusion otherwise negative right knee Dictated by: Jared Argueta MD 08/27/2019 18:47 Electronically signed by Jared Argueta MD in [place] 08/27/2019 18:47
== END ==
PROVIDERS: PCP Family Medicine; Visit Provider Family Medicine
DX: M25.561 Pain in right knee (principal)
CPT/HCPCS: 73560

== ENCOUNTER 2023-09-01 14:43 | Emergency (ER) | payer BC, MEDICARE, SELFPAY ==
--- NOTE | 2023-09-01 15:10 | XR_ITS ---
PROCEDURE INFORMATION: Exam: XR Left Foot Exam date and time: 09/01/2023 3:07 PM Age: 63 years old Clinical indication: Pain; Foot; Left TECHNIQUE: Imaging protocol: Radiologic exam of the left foot. Views: 3 or more views. COMPARISON: CR XR FOOT LT MIN 3V 07/19/2019 11:24 AM FINDINGS: Bones/joints: Moderate plantar calcaneal bone spur, increased in size. Soft tissues: Normal. Vasculature: Atherosclerosis. IMPRESSION: 1. Moderate plantar calcaneal bone spur, increased in size. 2. Atherosclerosis.
[2023-09-01 15:20] VITALS: BP 154/78; PULSE 82; RESP 18; TEMP 36.8; O2SAT 97; BMI 25.7
--- NOTE | 2023-09-01 15:39 | EXP.UTC ---
Discharge Plan Disposition Patient Disposition: Home, Self-Care Condition: Good Prescriptions Prescriptions: No Action metoprolol succinate 50 mg tablet extended release 24 hr 50 mg PO DAILY Patient Comments: TAKE 1 TABLET BY MOUTH ONCE DAILY clopidogrel 75 mg tablet 75 mg PO DAILY Patient Comments: TAKE 1 TABLET BY MOUTH ONCE DAILY nifedipine 60 mg tablet extended release 24hr 60 mg PO DAILY Patient Comments: TAKE 1 TABLET BY MOUTH ONCE DAILY levothyroxine 50 mcg tablet 50 mcg PO DAILY Patient Comments: TAKE 1 TABLET BY MOUTH ONCE DAILY insulin lispro [Humalog U-100 Insulin] 100 unit/mL solution See Rx Instructions .ROUTE .COMPLEX Rx Instructions: . losartan 100 mg tablet 100 mg PO DAILY Patient Comments: TAKE 1 TABLET BY MOUTH ONCE DAILY eszopiclone 3 mg tablet 3 mg PO HS Patient Comments: TAKE 1 TABLET BY MOUTH AT BEDTIME Steglatro 15 mg tablet 15 mg PO DAILY Patient Comments: TAKE 1 TABLET BY MOUTH ONCE DAILY Ozempic 2 mg/dose (8 mg/3 mL) pen injector 2 mg SQ WEEKLY Referrals Follow up/Referrals: Lidia Espinal APRN [Primary Care Provider] - See instructions Activity Restrictions/Add. Instructions Additional Instructions/Restrictions: Get a heel pad and place in the heel of your shoe may help with pain in heel from spur Over the counter Motrin and/or Tylenol as directed on package for pain FOllow up with your Family Doctor and Podiatry for further evaluation and treatment Return if needed Clinical Impressions Clinical Impression: Calcaneal spur Instructions Patient Instructions: DI for Foot Pain Discharge ED Provider: Erica England [facility] General Stated complaint: Pain in L foot Mode of Arrival: Ambulatory Source of Information: Patient Limitations: No Limitations Time Seen by Provider: 09/01/23 15:39 Description of Symptoms (Recalled from Triage Doc. by RN): PATIENT C/O PAIN AND SWELLING TO LEFT FOOT SINCE YESTERDAY, NO KNOWN INJURY HEENT Symptoms (Recalled from RN notes): No Resp Symptoms (Recalled from RN notes): No Skin Symptoms (Recalled from RN notes): No MS Symptoms (Recalled from RN notes): Yes Functional Status (Recalled from RN notes): WNL History of Present Illness Provider Complaint: Patient states that he was walking around at home yesterday and not sure if he did something to hurt his foot or if he stepped on a rock wrong or what but he has been having pain in the bottom of his foot and sore when he walks on it States he was worried that he may have fractured something so he came in to get it xrayed Related Data Home Medications Medication Instructions Recorded Confirmed clopidogrel 75 mg tablet 75 mg PO DAILY 09/01/23 09/01/23 ertugliflozin 15 mg tablet 15 mg PO DAILY 09/01/23 09/01/23 (Steglatro) eszopiclone 3 mg tablet 3 mg PO HS 09/01/23 09/01/23 insulin lispro 100 unit/mL See Rx Instructions .Route .COMPLEX 09/01/23 09/01/23 subcutaneous solution (Humalog U-100 Insulin) levothyroxine 50 mcg tablet 50 mcg PO DAILY 09/01/23 09/01/23 losartan 100 mg tablet 100 mg PO DAILY 09/01/23 09/01/23 metoprolol succinate 50 mg 50 mg PO DAILY 09/01/23 09/01/23 tablet,extended release 24 hr nifedipine 60 mg tablet,extended 60 mg PO DAILY 09/01/23 09/01/23 release 24 hr semaglutide 2 mg/dose (8 mg/3 mL) 2 mg SQ WEEKLY 09/01/23 09/01/23 subcutaneous pen injector (Ozempic) Allergies Allergy/AdvReac Type Severity Reaction Status Date / Time lisinopril AdvReac Mild cough Verified 09/11/18 13:38 Worker's Comp Is this a Worker's Comp case?: No [facility] Disclaimer: The information contained in this section may have been updated after the patient was seen, as this information can be updated by other users. Medical History (Updated 09/01/23 @ 16:51 by Erica England APRN) NELSON treated with BiPAP Social History Smoking Status: Never smoker alcohol intake: never substance use type: denies use current occupational status: other Travel in the last 8 weeks: None household members: spouse housing: house current occupational exposures/hazards: No caffeine: Yes ROS Obtained: Yes All systems reviewed & no additional complaints except as documented and Yes Systems reviewed as appropriate & no additional complaints except as documented Constitutional Constitutional: Reports system reviewed and no additional complaints, except as documented and Reports as per HPI ENT Ears, Nose, Mouth, and Throat: Reports system reviewed and no additional complaints, except as documented and Reports as per HPI Cardiovascular Cardiovascular: Reports system reviewed and no additional complaints, except as documented and Reports as per HPI Respiratory Respiratory: Reports system reviewed and no additional complaints, except as documented and Reports as per HPI Musculoskeletal Musculoskeletal: Reports system reviewed and no additional complaints, except as documented, Reports as per HPI and Reports other (Pain in bottom of foot after walking around yesterday ) Physical Exam General General appearance: alert and in no apparent distress Respiratory Respiratory exam: Present normal lung sounds bilaterally; Absent respiratory distress or wheezes Cardiovascular Cardiovascular exam: Present regular rate, normal rhythm and normal heart sounds Expanded Lower Extremity Exam Left: Foot/toe exam: Present tenderness; Absent swelling, ecchymosis or erythema Bottom foot image: 1. reports pain/tenderness since yesterday no swelling noted no bruising noted Neurological Exam Neurological exam: Present alert, oriented X3 and normal gait Medical Decision Making Yury Inquiry Pt receiving controlled substance: No Yury was queried for this patient: No Vital Signs: 09/01/23 15:20 Temperature 98.2 F Temperature Source Oral Pulse Rate [Left Brachial] 82 Respiratory Rate 18 Blood Pressure [Left Arm] 154/78 H Blood Pressure Mean [Left Arm] 103 Blood Pressure Source [Left Arm] Automatic Cuff Blood Pressure Position [Left Arm] Sitting 02 Sat by Pulse Oximetry 97 Oxygen Delivery Method Room Air Orders (Tests/Meds): ORDERS Category Date Time Status Foot XR left minimum 3 views [XR foot LT min 3V] Stat Exams 09/01/23 15:10 Taken Radiology Data #1: Image(s): Foot/Toes Image Reviewed: Yes I have reviewed radiologist's interpretation IMPRESSION: 1. Moderate plantar calcaneal bone spur, increased in size. 2. Atherosclerosis.
[2023-09-01 16:56] VITALS: BP 154/78; PULSE 82; RESP 18; TEMP 36.8; O2SAT 97
== END 2023-09-01 16:58 | disposition home or self-care (01) ==
PROVIDERS: Emergency Provider Nurse Practitioner; PCP Nurse Practitioner
DX: M79.672 Pain in left foot; M77.32 Calcaneal spur, left foot
CPT/HCPCS: 73630; 99204; 99212; G0463

== ENCOUNTER 2023-09-12 08:35 | Emergency (ER) | payer BC, MEDICARE, SELFPAY ==
[2023-09-12 08:36] VITALS: BP 169/139; PULSE 80; RESP 16; O2SAT 97; BMI 31.1
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
[2023-09-12 08:55] VITALS: BP 161/87; PULSE 78; RESP 17; TEMP 36.7; O2SAT 98
== END 2023-09-12 09:00 | disposition home or self-care (01) ==
PROVIDERS: Emergency Provider Student in an Organized Health Care Education/Training Program; PCP Nurse Practitioner
DX: G56.22 Lesion of ulnar nerve, left upper limb (principal)
CPT/HCPCS: 99282